=== PATIENT | male | born 1990 | race African-American/Black ===

== ENCOUNTER 2017-08-16 15:42 | Emergency (ER) | payer OTHER ==
[~2017-08-16] VITALS: Ht 185.4 cm; Wt 73.6 kg
[2017-08-16] MEDS ORDERED: ALBENZA200 MG PO (19:27)
[2017-08-16 20:08] VITALS: BP 123/72
== END 2017-08-16 20:09 | disposition home or self-care (01) ==
LOC: EME 15:42
DX: B89 Unspecified parasitic disease (principal); Z91.013 Allergy to seafood
CPT/HCPCS: 87177; 99281; 99283

== ENCOUNTER 2018-01-30 16:47 | Emergency (ER) | payer OTHER ==
[~2018-01-30] VITALS: Ht 188 cm; Wt 78.0 kg
[~2018-01-30 16:47] MED LIST: ALBENZA200 MG PO
[2018-01-30 20:02] VITALS: BP 140/76
== END 2018-01-30 20:02 | disposition left against medical advice (07) ==
LOC: EME 16:47
DX: R07.89 Other chest pain (principal); R19.5 Other fecal abnormalities; Z53.20 Procedure and treatment not carried out because of patient's decision for unspecified reasons; Z71.1 Person with feared health complaint in whom no diagnosis is made
CPT/HCPCS: 71046; 80048; 82705; 84484; 85025; 87506; 99281; 99282